=== PATIENT | male | born 1965 | race American Indian/Alaskan Native ===

== ENCOUNTER 2018-07-11 06:17 | Day surgery (SDC) | payer OTHER ==
[2018-07-10 11:12] VITALS: BMI 25.4
[2018-07-11] MEDS ORDERED: MIDAZOLAM HCL 2 MG/2 ML SINGLE DOSE VIAL ONE (07:17)
[2018-07-11] MEDS ORDERED: PROPOFOL 20 ML ONE ×2 (07:21→08:43)
[2018-07-11] MEDS ORDERED: SUCCINYLCHOLINE CHLORIDE 200 MG/10 ML VIAL ONE (07:21)
[2018-07-11] MEDS ORDERED: ROCURONIUM BROMIDE 50 MG/5 ML VIAL ONE ×3 (07:21→10:01)
[2018-07-11] MEDS ORDERED: KETOROLAC TROMETHAMINE 30 MG/1 ML VIAL ONE (07:22)
[2018-07-11] MEDS ORDERED: LIDOCAINE HCL/PF 2% SDV 5ML VIAL ONE ×3 (07:22→11:19)
[2018-07-11] MEDS ORDERED: DEXAMETHASONE SOD PHOSPHATE 4 MG/1 ML VIAL ONE ×3 (07:22→11:19)
[2018-07-11] MEDS ORDERED: HEPARIN NA (PORCINE) 5,000 UNITS/ML 1ML VIAL ONE (07:30)
[2018-07-11] MEDS ORDERED: DESFLURANE GAS 240 ML BOTTLE IH ONE (07:34)
[2018-07-11] MEDS ORDERED: SEVOFLURANE 250 ML BTL ONE (07:34)
[2018-07-11] MEDS ORDERED: ONDANSETRON 4 MG/2 ML VIAL IVPUSH PRN (07:41)
[2018-07-11] MEDS ORDERED: LACTATED RINGERS SOLUTION 1,000 ML IV SCH (07:45)
--- NOTE | 2018-07-11 08:07 | HP ---
Admitting History and Physical - Admission History of Present Illness: The patient is a 53 yo male who presents today for surgery with Dr. Hale. He states that on rountine evaluation he was found to have an elevated PSA and Swathi 4+3 prostate cancer on biopsy. His father had a h/o of prostate cancer. He denies any dysuria, hematuria today. No abd pain. No CP, SOB or fevers. 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 - Smoking History Smoking history: Never smoked Have you smoked in the past 12 months: No - Alcohol/Substance Use Hx Alcohol Use: No Home Medications - Allergies Allergies/Adverse Reactions: Allergies Allergy/AdvReac Type Severity Reaction Status Date / Time Penicillins Allergy Intermediate "rash" Verified 07/11/18 07:31 - Home Medications Home Medications: Ambulatory Orders Cyanocobalamin [Vitamin B12 -] 100 mcg PO HS 07/10/18 L.acidoph,Paracasei, B.lactis [Probiotic] 1 each PO HS 07/10/18 Multivitamin/Iron/Folic Acid [Centrum Adults Tablet] 1 each PO HS 07/10/18 Ubidecarenone [Co Q10] 200 mg PO HS 07/10/18 Vitamin E 400 unit PO HS 07/10/18 Acetaminophen [Tylenol Extra Strength] 500 mg PO Q6H PRN #20 tablet 07/11/18 Docusate Sodium [Colace -] 100 mg PO BID #60 capsule 07/11/18 Ketorolac Tromethamine [Toradol] 10 mg PO Q6H PRN #20 tablet 07/11/18 Oxybutynin Chloride [Ditropan -] 5 mg PO Q8H PRN #10 tablet 07/11/18 Review of Systems - Review of Systems Constitutional: denies: Chills, Fever Eyes: denies: Blurred Vision Neck: denies: Decreased ROM, Pain on Movement Cardiovascular: denies: Chest Pain, Edema, Palpitations Respiratory: denies: Cough, SOB Gastrointestinal: denies: Abdominal Pain, Constipation Genitourinary: denies: Burning, Dysuria, Hematuria Musculoskeletal: denies: Back Pain, Decreased ROM, Extremity Pain, Joint Pain Integumentary: denies: Bruising Neurological: denies: Headache, Parasthesia, Seizure Hematology/Lymphatic: denies: Easily Bruised, Excessive Bleeding Physical Examination Vital Signs: Vital Signs Temperature 98.8 F 07/11/18 07:30 Pulse Rate 68 07/11/18 07:30 Respiratory Rate 20 07/11/18 07:30 Blood Pressure 129/78 07/11/18 07:30 O2 Sat by Pulse Oximetry (%) 98 07/11/18 07:25 Constitutional: Yes: Well Nourished, Calm Eyes: Yes: WNL, Conjunctiva Clear. No: Sclera Icterus HENT: Yes: WNL, Atraumatic, Normocephalic Neck: Yes: WNL, Supple, Trachea Midline Cardiovascular: Yes: WNL, Regular Rate and Rhythm Respiratory: Yes: WNL, Regular, CTA Bilaterally Gastrointestinal: Yes: WNL, Normal Bowel Sounds, Soft Extremities: No: Calf Tenderness Edema: No Peripheral Pulses WNL: Yes Peripheral Pulses: Left Doralis Pedis: 2+, Right Dorsalis Pedis: 2+ Neurological: Yes: WNL, Alert, Oriented ...Motor Strength: LUE, LLE, RUE, RLE Psychiatric: Yes: WNL, Alert, Oriented Assessment/Plan A/P: 53 yo male with prostate cancer for surgery today with Dr. Hale He remains npo Heparin SQ given this am IV abx at times of surgery DVT ppx with SCDs/early ambulation D/w Dr. Hale
[2018-07-11] MEDS ORDERED: CLINDAMYCIN 600 MG PREMIX BAG IVPB ONE (08:55)
[2018-07-11] MEDS ORDERED: CLINDAMYCIN PHOSPHATE 600 MG/4 ML VIAL ONE (08:58)
[2018-07-11] MEDS ORDERED: GLYCOPYRROLATE 0.2 MG/1 ML VIAL ONE (09:16)
[2018-07-11] MEDS ORDERED: NEOSTIGMINE METHYLSULFATE 0.5 MG/ML - 10 ML MDV ONE (09:16)
[2018-07-11] MEDS ORDERED: BUPIVACAINE HCL/PF 0.25% (2.5MG/ML) 10 ML VIAL IJ ONE ×2 (11:08→13:02)
[2018-07-11] MEDS ORDERED: PHENYLEPHRINE HCL 10 MG/1 ML SINGLE DOSE VIAL ONE (12:53)
[2018-07-11] MEDS ORDERED: ONDANSETRON 4 MG/2 ML VIAL IM PRN (13:32)
[2018-07-11] MEDS ORDERED: HEPARIN NA (PORCINE) 5,000 UNITS/ML 1ML VIAL SQ ONE ×2 (13:32→14:30)
--- NOTE | 2018-07-11 13:44 | OP ---
Operative Note - Note: Operative Date: 07/11/18 Pre-Operative Diagnosis: prostate cancer Operation: robotic assisted laparoscopic radial prostectomy, and bilateral pelvic lymph node dissection Surgeon: Bruno Hale Chief Technician X Ray: Mayelin Rivera Anesthesiologist/GROUT PUMP OPERATOR: Souleymane Esquivel Anesthesia: General Specimens Removed: prostate, bisi-prostatic fat, pelvic lymph node A and B Estimated Blood Loss (mls): 75 Drains, Volume Out (mls): 30 (tao) Fluid Volume Replaced (mls): 3,700 Operative Report Dictated: Yes
[2018-07-11] MEDS ORDERED: OXYBUTYNIN CHLORIDE 5 MG TABLET PO PRN (13:55)
[2018-07-11] MEDS ORDERED: ACETAMINOPHEN INJECTION 100 ML IVPB ONE (13:55)
[2018-07-11] MEDS: ACETAMINOPHEN 1000 MG/100 ML VIAL (NON FORMULARY) IVPB SCH ×2 (14:00→19:02)
--- NOTE | 2018-07-11 15:32 | SURG ---
Surgery Medical Staff Director Note Medical Staff Director: Mayelin Rivera PA-C Date of Service: 07/11/18 Diagnosis: prostate cancer Procedure: robotic assisted laparoscopic radial prostectomy, and bilateral pelvic lymph node dissection I was present for the entirety of the operative procedure. For further detail, please refer to operative report. Visit type - Case Type Case Type: Scheduled - Emergency Emergency Visit: No - New patient This patient is new to me today: Yes Date on this admission: 07/11/18
[2018-07-11] MEDS ORDERED: PT OWN MED DRAWER 7, Y5N ONE (18:12)
[2018-07-11] MEDS: SODIUM CHLORIDE 1,000 ML IV SCH ×2 (18:31→21:36)
[2018-07-11] MEDS: DOCUSATE SODIUM 100 MG CAPSULE (FP) PO SCH (21:37)
[2018-07-12] MEDS: KETOROLAC TROMETHAMINE 10 MG TABLET PO SCH ×3 (00:32→11:43)
[2018-07-12] MEDS ORDERED: PT OWN MED DRAWER 7, Y5N ONE ×2 (01:17→09:00)
[2018-07-12] MEDS: ACETAMINOPHEN 500 MG TABLET (FP) PO SCH ×3 (01:33→14:23)
[2018-07-12 07:46] LABS: HEMATOCRIT 35.4 % (35.4-49); HEMOGLOBIN 12.2 GM/dL (11.7-16.9); MCH 30.2 pg (25.7-33.7); MCHC 34.5 g/dl (32.0-35.9); MEAN CELL VOLUME 87.6 fl (80-96); MEAN PLT VOLUME 7.6 fl (7.5-11.1); PLATELET COUNT 204 K/MM3 (134-434); RBC 4.04 M/mm3 (4.00-5.60); WHITE BLOOD COUNT 10.5 K/mm3 (4.0-10.0)
[2018-07-12 08:08] LABS: ANION GAP 5 MMOL/L (8-16); BLOOD UREA NITROGEN 17 mg/dL (7-18); CHLORIDE 107 mmol/L (98-107); CO2 26 mmol/L (21-32); CREATININE 0.9 mg/dL (0.55-1.3); GLUCOSE,RANDOM 90 mg/dL (74-106); POTASSIUM 3.6 mmol/L (3.5-5.1); SODIUM 138 mmol/L (136-145)
--- NOTE | 2018-07-12 08:21 | OP ---
DATE OF OPERATION: 07/11/2018 PREOPERATIVE DIAGNOSIS: Prostate cancer. POSTOPERATIVE DIAGNOSIS: Prostate cancer. PROCEDURE PERFORMED: Robotic assisted laparoscopic prostatectomy and bilateral pelvic lymph node dissection. SURGEON: rBuno Hale MD DESCRIPTION OF PROCEDURE: A time-out was called. All pressure points were padded. He was prepped and draped in the usual fashion for robotic radical prostatectomy. A Palma catheter was placed in the bladder. Initial pneumoperitoneum was obtained using a Veress needle. Subsequently, an 8-mm port was placed and the robotic camera was used and the abdomen was explored. No bowel injuries were identified. Three additional 8-mm ports and one 12-mm administrative library assistant port were placed under vision. The robot was brought to the patient's bedside and docked. We identified a few intra-abdominal adhesions, which were taken down sharply. The bladder was dropped from the anterior attachment to the abdominal wall. The prostate was then defatted and this fat was sent for pathological examination. The endopelvic fascia was opened on both sides. The superficial veins were cauterized, and a stitch of 0 PDS was placed. The anterior bladder neck was then incised and the dissection proceeded towards the posterior bladder neck up to the vas deferens and seminal vesicles. The rectoprostatic fascia was incised and the dissection was carried distally towards the apex. At that point a bilateral nerve-sparing procedure was performed, and dissection was pursued laterally up to the apex. On the right, an intrafascial nerve-sparing procedure was performed. On the left, an intrafascial nerve-sparing procedure was procedure. The prostatic vascular pedicles were then controlled bilaterally using Weck clips. The was then divided and the urethra was transected using cold scissors. Following complete urethral transection, the prostate was then mobilized and freed from its posterior attachments and placed in the right upper quadrant. The prostatic basin was then irrigated with saline. The bedside administrative library assistant placed a finger in the rectum and no rectal injury was observed, with no visible blood noted on the medical surgical tech's glove. Bilateral pelvic lymph node dissection was performed in the usual fashion between the external iliac and the obturator nerves bilaterally. The prostate and lymph nodes were then placed together in an Endo Catch bag. At this point, hemostasis was assessed and maintained in the prostatic fossa. The urethrovesical anastomosis was then performed using 2-0 Monocryl sutures on a UR6 needle in a running anastomotic technique. The anastomosis was tested with 60 mL of saline and was watertight. A Thanh-Crook drain was not placed. The 12-mm administrative library assistant port site was closed using the [place]-Shyann device with 0 Vicryl. The specimen was extracted after enlarging the umbilical incision. The fascia was then closed using running 0 Vicryl. The skin was closed using 4-0 Monocryl and covered with Dermabond. The patient was extubated in the operating room, and taken to the recovery room in good condition. Estimated blood loss was 75 mL. There were no accidental lacerations or injuries. MD BEATRICE PILLAI/[id number]
--- NOTE | 2018-07-12 08:25 | PN ---
Progress Note (short form) - Note Progress Note: POD 1, s/p prostate cancer robotic assisted laparoscopic radical prostectomy, and bilateral pelvic lymph node dissection Pt seen and examined. States he is feeling well overall. Had 2 episodes of vomiting last night after having clears. No n/v since. Has been oob walking around the room. Tao in place, tolerating without issue. Pain controlled. No flatus yet. Denies cp/sob, calf pain. Vital Signs Temp 99.1 F 07/12/18 05:59 Pulse 71 07/12/18 05:59 Resp 20 07/12/18 05:59 BP 97/56 L 07/12/18 05:59 Pulse Ox 98 07/11/18 18:32 Intake & Output 07/11/18 07/11/18 07/12/18 11:59 23:59 11:59 Intake Total 3700 1200 825 Output Total 75 1300 900 Balance 3625 -100 -75 Weight 171 lb 14.4 oz 171 lb 4 oz Intake: IV 3700 800 825 Normal Saline - 1,000 ml 450 825 @ 75 mls/hr IV ASDIR UMM Rx#:[id number] Oral 400 Output: Urine 1300 900 Tao 900 900 Estimated Blood Loss 75 Other: Weight Measurement Method [facility] CBC, BMP 07/12/18 07:20 07/12/18 07:20 Gen: awake, alert, nad, laying in bed Resp: CTA b/l anteriorly CV: rrr, s1s2 Abdo: soft, nondistended, + bowel sounds. +TTP around incisions (appropriate to status). Supraumbilical dressing with moderate serosanguinous drainage, dressing removed, incision c/d/i, no drainage or erythema. New 2x2 and tegaderm placed. Ext: scds in place, no calf pain A/P: 53 y/o M w/ PMHx prostate cancer now POD 1, s/p prostate cancer robotic assisted laparoscopic radical prostectomy, and bilateral pelvic lymph node dissection. Afebrile, VSS. H/H and creatinine stable. Doing well overall. -Keep tao in place, pt to be discharged with tao catheter -Leg bag teaching -Clears to be continued upon d/c until pt passes flatus -Plan for d/c today above d/w attending Dr Hale
--- NOTE | 2018-07-12 09:01 | PN ---
Progress Note (short form) - Note Progress Note: Anesthesia postop note 53 y/o M s/p GA for robotic prostatectomy POD#1, vss, aaox3, some abdominal discomfort, ambulating. No anesthesia complications.
[2018-07-12] MEDS: DOCUSATE SODIUM 100 MG CAPSULE (FP) PO SCH (09:24)
[2018-07-12] MEDS ORDERED: DOCUSATE SODIUM 100 MG CAPSULE (FP) PO SCH (10:00)
[2018-07-12 13:54] VITALS: BP 92/62; PULSE 70; TEMP 98.5
--- NOTE | 2018-07-18 11:40 | PATH ---
Surgical Pathology Report Patient Name: PILAR PERES [facility]. Rec. #: [id number] /Age/Gender: 1965 (Age: 53) / M Account: [id number] Location: AMBULATORY SURG Taken: 07/11/2018 Received: 07/12/2018 Reported: 07/18/2018 Physicians: Bruno Hale MD Specimen(s) Received A: PERIPROSTATIC FAT B: PROSTATE C: PELVIC LYMPH NODE A D: PELVIC LYMPH NODE B Clinical History Prostate cancer Final Diagnosis A. PERIPROSTATIC FAT, EXCISION: BENIGN FIBROADIPOSE AND FIBROVASCULAR TISSUE. B. PROSTATE AND SEMINAL VESICLES, ROBOTIC-ASSISTED LAPAROSCOPIC PROSTATECTOMY: PROSTATIC ADENOCARCINOMA, LANDON SCORE (3 + 4 = 7), GRADE 2. TUMOR VOLUME: APPROXIMATELY 35% OF GLAND VOLUME. TUMOR FOCALITY: ONE NODULE, PRESENT BILATERALLY; MEASURES 3.0 X 2.5 X 2.5 CM. HIGH GRADE PROSTATIC INTRAEPITHELIAL NEOPLASIA (HGPIN) PRESENT. TUMOR INVOLVES RIGHT SEMINAL VESICLE. LYMPHOVASCULAR INVASION IDENTIFIED. PERINEURAL INVASION IDENTIFIED. EXTRAPROSTATIC EXTENSION: PRESENT, FOCAL, LEFT AND RIGHT POSTERIOR NEAR BASE. SURGICAL MARGIN IS NEGATIVE. SEE SUMMARY BELOW. C. PELVIC LYMPH NODE A, EXCISION: TWO LYMPH NODES NEGATIVE FOR CARCINOMA (0/2). D. PELVIC LYMPH NODE B, EXCISION: ONE OF TWO LYMPH NODES WITH METASTATIC CARCINOMA ON H&E AND CONFIRMED BY AE1/3 IMMUNOHISTOCHEMICAL STAIN (1/2). TUMOR DEPOSIT MEASURES 1 MM IN GREATEST MICROSCOPIC DIMENSION. NO EXTRANODAL EXTENSION IDENTIFIED. PATHOLOGIC STAGE STAGE: pT3b pN1. Comment: Findings discussed with Dr. Hale. Comments Prostate Carcinoma: Surgical Pathology Cancer Case Summary (Based on AJCC (TNM) 8th Edition) Procedure _X_ Robotic-assisted laparoscopic prostatectomy Prostate Size Weight: (grams): 34 g Size (centimeters): 4.5 x 3.5 x 3.3 cm Histologic Type _X_ Acinar adenocarcinoma Histologic Grade Grade Group and [place] Score _X_ Grade group 2 ([place] Score 3+4=7) Percentage of Pattern 4 in [place] Score 7 (3+4, 4+3) Cancer (report if applicable): _20__% Tumor Quantitation Estimated percentage of prostate involved by tumor: 35% Tumor size (dominant nodule, if present): Greatest dimension (millimeters): 30 mm Additional dimensions (millimeters): 25 x 25 mm Location of dominant nodule: Centrally: left and right lobes Extraprostatic Extension _X__ Present, focal Location of Extraprostatic Extension _X_ Right posterior- near base _X_ Left posterior- near base Urinary Bladder Neck Invasion _X_ Not identified Seminal Vesicle Invasion _X_ Present _X__ Right Lymphovascular Invasion _X_ Present Perineural Invasion _X_ Present Margins _X_ Uninvolved by invasive carcinoma Treatment Effect _X_ No known presurgical therapy Regional Lymph Nodes Lymph Node Examination Number of Lymph Nodes Involved: 1 Specify Site(s): Pelvic lymph node B (part D) Size of Largest Metastatic Deposit (centimeters): 0.1 cm Size of Largest Lymph Node Involved (centimeters): 0.6 x 0.4 x 0.2 cm Extranodal Extension _X_ Not identified Number of Lymph Nodes Examined: 4 Pathologic Stage Classification (pTNM, AJCC 8th Edition) Primary Tumor (pT) _X_ pT3b: Tumor invades seminal vesicle(s) Regional Lymph Nodes Category (pN) _X_ pN1: Metastases in regional node(s) Additional Pathologic Findings _X_ High-grade prostatic intraepithelial neoplasia (PIN) _X_ Nodular prostatic hyperplasia _X_ Acute and chronic inflammation Electronically Signed Monet López M.D. Gross Description A. Received in formalin labeled "periprostatic fat," is a 4.5 x 2.0 x 0.3 cm aggregate of yellow, lobulated adipose tissue. The specimen is entirely submitted in 2 cassettes. B. Received in formalin labeled "prostate, seminal vesicle," is a 34 g radical prostatectomy specimen with attached seminal vesicles and vas deferentia. The prostate measures 4.5 cm from left to right, 3.5 cm from superior to inferior and 3.3 cm from anterior to posterior. The left seminal vesicle measures 2.2 x 1.4 x 0.9 cm and the right seminal vesicle measures 2.0 x 1.3 x 0.4 cm. The outer capsule is herclues fregoso and predominantly smooth. The right side of the prostate is inked in red and the left side is inked black. There is a 3.0 x 2.5 x 2.5 cm hercules-yellow, nodular mass which may represent the tumor in the left, right, anterior and posterior lobes. The mass comprises the majority of the prostatic parenchyma. Corporate Director Talent Assessment sections are submitted in 35 cassettes as follows: 1-coned left apex; 2-coned right apex; 3-8-left anterior sequentially submitted from apex to base; 9-shave of left base; 10-15-left posterior sequentially submitted from apex to base; 16-21-right anterior sequentially submitted from apex to base; 22-shave of right base; 23-28-right posterior sequentially submitted from apex to base; 20-82-hagkthta of left seminal vesicle with prosthetic parenchyma; 33-84-ttiysjtb of right seminal vesicle with prosthetic parenchyma; 34-left vas deferens margin; 35-right vas deferens margin. C. Received in formalin labeled "pelvic lymph node A," is a 5.5 x 5.5 x 0.8 cm aggregate of hercules-yellow, lobulated adipose tissue. Sectioning reveals 2 lymph nodes measuring 1.3 x 0.8 x 0.3 cm and 2.2 x 1.3 x 0.6 cm. The larger lymph node is bisected and the specimen is entirely submitted in 3 cassettes as follows: 1-smaller lymph node; 2-0-nvktlnxv larger lymph node. D. Received in formalin labeled "pelvic lymph node B.," Is a 5.5 x 5.0 x 0.9 cm aggregate of yellow, lobulated adipose tissue. Sectioning reveals 2 lymph nodes measuring 0.6 x 0.4 x 0.2 cm and 2.4 x 1.3 x 0.5 cm. The larger lymph node is bisected and the specimen is entirely submitted in 3 cassettes as follows: 1-smaller lymph node; 2-3-larger bisected lymph node. 07/14/2018 saudi07/14/2018
== END 2018-07-12 15:08 | disposition home or self-care (01) ==
LOC: JASUSAT 06:17 → EDSTATUS 08:00 → J6S 16:22 → JASUSAT 07-12 15:08
PROVIDERS: ATTEND Urology
PROC: 07BC4ZX Excision of Pelvis Lymphatic, Percutaneous Endoscopic Approach, Diagnostic (ICD-10-PCS; 2018-07-11)
PROC: 0VT04ZZ Resection of Prostate, Percutaneous Endoscopic Approach (ICD-10-PCS; principal; 2018-07-11 08:00)
DX: C61 Malignant neoplasm of prostate (principal)
CPT/HCPCS: 36415; 80048; 85027; 86850; 86900; 86901; 88305-TC; 88307-TC; 88309-TC; 88342-TC; 94760; J0131; J1644; J7030